=== PATIENT | male | born 1965 | race Two or more races ===

== ENCOUNTER → 2022-10-21 | Day surgery (SDC) | payer OTHER ==
[~2022-10-21] VITALS: Ht 167.6 cm; Wt 98.0 kg
[~2022-10-21] MED LIST: CIPROFLOXACIN 400MG/200ML 200 ML IV ONE; DexAMETHasone SOD PHOS 10MG/1ML VIAL INJ ONE; GLYCOPYRROLATE 0.2 MG/ML 1ML VIAL ONE; KETOROLAC TROMETH 30 MG/ML 1ML VIAL ONE; LIDOCAINE 2% (LOCAL ANESTH.) PF 5ml SDV ONE; ONDANSETRON HCL 4 MG/2 ML VIAL ONE; PROPOFOL 10 MG/ML 20 ML IV ONE
[2022-10-21 08:45] VITALS: BP 133/87
== END | disposition home or self-care (01) ==
LOC: SUR 06:10 → EEVIPCON 07:45
PROVIDERS: ATTEND Urology
DX: C61 Malignant neoplasm of prostate (principal); R97.20 Elevated prostate specific antigen [PSA]; I10 Essential (primary) hypertension; E66.3 Overweight; Z68.34 Body mass index [BMI] 34.0-34.9, adult; I82.509 Chronic embolism and thrombosis of unspecified deep veins of unspecified lower extremity; Z87.891 Personal history of nicotine dependence
CPT/HCPCS: 55700; 88305; 88342; J0744; J1100; J1885; J2001; J2405; J2704

== ENCOUNTER 2023-04-07 13:00 | Inpatient (IN) | payer OTHER ==
[~2023-04-07] VITALS: Ht 167.6 cm; Wt 98.8 kg
[2023-04-07 14:14] VITALS: RESP 17; O2SAT 96
[2023-04-07] MEDS ORDERED: HYDROcodone-ACET 5/325MG TAB PO PRN (15:00)
[2023-04-07] MEDS ORDERED: ONDANSETRON HCL 4 MG/2 ML VIAL IV PRN (15:00)
[2023-04-07] MEDS ORDERED: OMNIPAQUE 12mg/ml 500ml ORAL SOLUTION PO ONE (15:28)
[2023-04-07 15:55] LABS: Urine WBC None Seen /hpf (0 - 3)
[2023-04-07 16:03] LABS: Urine Bacteria NONE SEEN /hpf (None Seen); Urine Blood Negative /uL (Negative); Urine Specific Gravity 1.014 (1.001-1.035)
[2023-04-07 17:00] VITALS: BP 125/83; PULSE 84; RESP 17; TEMP 99.4; O2SAT 94
[2023-04-07] MEDS ORDERED: IOHEXOL 300 MG/ML 100ML BOTTLE IJ ONE (17:46)
[2023-04-07 19:36] LABS: Basophils # (auto) 0 10 ^3/uL (0-0.2); Basophils % (auto) 0.8 % (0.0-2.0); Eosinophils # (auto) 0.1 10 ^3/uL (0-0.8); Eosinophils % (auto) 1.6 % (0.0-7.0); Hematocrit 34.2 % (41.0-53.0); Hemoglobin 11.7 g/dL (13.5-17.5); Lymphocytes # (auto) 1.3 10 ^3/uL (0.4-5.4); Lymphocytes % (auto) 26.2 % (10.0-50.0); Mean Corpuscular Hgb Conc. 34.2 g/dL (32.0-36.0); Mean Corpuscular Volume 78.9 fL (80.0-100.0); Monocytes # (auto) 0.3 10 ^3/uL (0-1.3); Monocytes % (auto) 6.1 % (0.0-12.0); Neutrophils # (auto) 3.3 10 ^3/uL (1.6-8.6); Neutrophils % (auto) 65.3 % (37.0-80.0); Nucleated Red Blood Cells % 0.1 %; Red Blood Cells 4.33 10^6/uL (4.5-5.90); Red Cell Distribution Width 15.2 % (11.8-14.3); White Blood Cell 5.1 10^3/uL (4.4-10.8)
[2023-04-07 20:10] VITALS: BP 126/80; PULSE 80; RESP 19; TEMP 98.1; O2SAT 94
[2023-04-07 20:15] LABS: Albumin 3.3 g/dL (3.4-5.0); Calcium 7.9 mg/dL (8.5-10.1); Potassium 3.7 mmol/L (3.5-5.1)
[2023-04-07 20:18] LABS: Bilirubin, Total 0.3 mg/dL (0.2-1.0); Total Protein 6.8 g/dL (6.4-8.2)
[2023-04-07 22:00] VITALS: BP 126/80; PULSE 80; RESP 19; TEMP 98.1; O2SAT 94
[2023-04-08] VITALS (7 sets, daily range): BP systolic 125–151; BP diastolic 72–95; PULSE 70–89; RESP 16–20; TEMP 98–98.6; O2SAT 91–97
[2023-04-08] MEDS: PANTOPRAZOLE 40 MG TAB PO SCH (09:02)
[2023-04-08] MEDS: ENOXAPARIN SOD 40 MG/0.4 ML SYRINGE SC SCH (09:02)
[2023-04-08] MEDS: cefTRIAXone 1GM/50ML D5W 50 ML IV SCH (09:02)
[2023-04-08] MEDS: METOPROLOL TARTRATE 25 MG TAB PO SCH (22:30)
[2023-04-09 05:00] VITALS: BP 123/83; PULSE 75; RESP 17; TEMP 98.2; O2SAT 96
[2023-04-09 08:00] VITALS: BP 137/78; PULSE 81; RESP 16; TEMP 98.6; O2SAT 96
[2023-04-09] MEDS: PANTOPRAZOLE 40 MG TAB PO SCH (09:40)
[2023-04-09] MEDS: ENOXAPARIN SOD 40 MG/0.4 ML SYRINGE SC SCH (09:40)
[2023-04-09] MEDS: cefTRIAXone 1GM/50ML D5W 50 ML IV SCH (09:40)
[2023-04-09] MEDS: METOPROLOL TARTRATE 25 MG TAB PO SCH ×2 (09:42→22:11)
[2023-04-09 11:10] VITALS: BP 137/78; PULSE 81; RESP 16; TEMP 98.6; O2SAT 96
[2023-04-09 13:22] VITALS: BP 142/75; PULSE 78; RESP 17; TEMP 98.4; O2SAT 96
[2023-04-09 17:39] VITALS: BP 135/78; PULSE 69; RESP 18; TEMP 98.1; O2SAT 96
[2023-04-09 22:00] VITALS: BP 132/82; PULSE 78; RESP 18; TEMP 97.9; O2SAT 95
[2023-04-10 05:00] VITALS: BP 114/76; PULSE 73; RESP 18; TEMP 97.8; O2SAT 95
[2023-04-10 09:37] VITALS: BP 149/97; PULSE 72; RESP 19; TEMP 98.3; O2SAT 95
[2023-04-10] MEDS: ENOXAPARIN SOD 40 MG/0.4 ML SYRINGE SC SCH (09:56)
[2023-04-10] MEDS: cefTRIAXone 1GM/50ML D5W 50 ML IV SCH (09:56)
[2023-04-10] MEDS: PANTOPRAZOLE 40 MG TAB PO SCH (09:56)
[2023-04-10] MEDS: METOPROLOL TARTRATE 25 MG TAB PO SCH ×2 (09:57→21:49)
[2023-04-10 13:03] VITALS: BP 135/80; PULSE 72; TEMP 98.4; O2SAT 96
[2023-04-10 17:01] VITALS: BP 140/80; PULSE 70; RESP 18; TEMP 98.4; O2SAT 94
[2023-04-10 19:50] VITALS: RESP 16; O2SAT 96
[2023-04-10 22:00] VITALS: BP 125/83; PULSE 81; RESP 18; TEMP 98.2; O2SAT 93
[2023-04-11 05:00] VITALS: BP 130/73; PULSE 64; RESP 18; TEMP 98; O2SAT 96
[2023-04-11 08:05] VITALS: BP 129/79; PULSE 91; RESP 16; TEMP 97.8; O2SAT 96
[2023-04-11] MEDS: cefTRIAXone 1GM/50ML D5W 50 ML IV SCH (08:54)
[2023-04-11] MEDS: PANTOPRAZOLE 40 MG TAB PO SCH (08:54)
[2023-04-11] MEDS: METOPROLOL TARTRATE 25 MG TAB PO SCH (08:54)
[2023-04-11] MEDS: ENOXAPARIN SOD 40 MG/0.4 ML SYRINGE SC SCH (08:55)
[2023-04-11 09:00] VITALS: BP 129/79; PULSE 91; RESP 16; TEMP 97.8; O2SAT 96
[2023-04-11 13:00] VITALS: BP 125/72; PULSE 75; RESP 16; TEMP 97.6; O2SAT 95
[2023-04-11 17:02] VITALS: BP 157/87; PULSE 96; RESP 16; TEMP 97.7; O2SAT 96
[2023-04-11 19:55] VITALS: BP 125/72; PULSE 75; RESP 16; TEMP 97.6; O2SAT 95
== END 2023-04-11 21:10 | DRG 724 ==
LOC: WEST WING 13:00
PROVIDERS: ADMIT Specialist; ATTEND Internal Medicine
DX: C61 Malignant neoplasm of prostate (principal); E11.9 Type 2 diabetes mellitus without complications; K57.90 Diverticulosis of intestine, part unspecified, without perforation or abscess without bleeding; K44.9 Diaphragmatic hernia without obstruction or gangrene; K76.0 Fatty (change of) liver, not elsewhere classified; R16.0 Hepatomegaly, not elsewhere classified; I10 Essential (primary) hypertension; Z85.46 Personal history of malignant neoplasm of prostate; Z83.3 Family history of diabetes mellitus; Z82.49 Family history of ischemic heart disease and other diseases of the circulatory system
CPT/HCPCS: 36415; 71046; 74177; 78306; 80053; 81001; 85025; 87086; G0378; J0696